=== PATIENT | female | born 1990 | race Caucasian/White ===

== ENCOUNTER 2017-09-09 10:18 | Emergency (ER) | payer OTHER ==
[2017-09-09 10:22] VITALS: BP 120/79; PULSE 62; RESP 18; TEMP 98.2
--- NOTE | 2017-09-09 10:41 | ED ---
General Adult HPI - General Chief complaint: Dental/Oral Stated complaint: Tooth Pain Time Seen by Provider: 09/09/17 10:20 Source: patient, RN notes reviewed Mode of arrival: ambulatory Limitations: no limitations - History of Present Illness Initial comments: This is a 27-year-old female who presents emergency department stating she was at her dentist office yesterday and he pulled 2 of her molars. Patient states the pain is so bad it makes it difficult to work. Patient states she has [place] was and Motrin 800 but they're not touching the pain. Patient also states she' s on clindamycin. Patient states she's looking to get a couple days off of work. Patient states she no she can't take any other pain medicine because it all makes her fall sleep and that is why she is been unable to take the [place]. Patient denies any swelling or drainage. Patient denies any fever chills. - Related Data Home Medications Medication Instructions Recorded Confirmed Ibuprofen [Motrin] 800 mg PO TID PRN 01/31/16 09/09/17 Allergies Allergy/AdvReac Type Severity Reaction Status Date / Time cephalexin monohydrate Allergy Rash/Hives Verified 09/09/17 10:36 [From Keflex] Penicillins Allergy Rash/Hives Verified 09/09/17 10:36 Sulfa (Sulfonamide Allergy Rash/Hives Verified 09/09/17 10:36 Antibiotics) Review of Systems ROS Statement: Those systems with pertinent positive or pertinent negative responses have been documented in the HPI. ROS Other: All systems not noted in ROS Statement are negative. Past Medical History Past Medical History: No Reported History Additional Past Medical History / Comment(s): migraine History of Any Multi-Drug Resistant Organisms: None Reported Past Surgical History: No Surgical Hx Reported Past Psychological History: Depression Smoking Status: Current some day smoker Past Alcohol Use History: Rare Past Drug Use History: None Reported General Exam - General Exam Comments Initial Comments: GENERAL Patient is well-developed and well-nourished. Patient is in mild distress. EYES Patient's pupils are equal and round. Extraocular motion is intact MOUTH Patient's empty sockets delusional any signs of infection and appear to be healing well SKIN Unremarkable NEURO The patient is alert and oriented 3 PYSCH Patient has normal interpersonal interactions. MUSCULOSKELETAL All 4 times and full range of motion. Limitations: no limitations Course Vital Signs 09/09/17 10:19 Temperature 98.2 F Pulse Rate 62 Respiratory 18 Rate Blood Pressure 120/79 O2 Sat by Pulse 100 Oximetry Disposition Clinical Impression: Pain, dental Disposition: HOME SELF-CARE Condition: Good Instructions: Toothache (ED) Is patient prescribed a controlled substance at d/c from ED?: No Referrals: Hadley Zimmerman DO [Primary Care Provider] - 1-2 days Time of Disposition: 10:41
== END 2017-09-09 10:50 | disposition home or self-care (01) ==
LOC: EC 10:18
DX: K08.89 Other specified disorders of teeth and supporting structures (principal); K08.409 Partial loss of teeth, unspecified cause, unspecified class; F17.200 Nicotine dependence, unspecified, uncomplicated; Z88.1 Allergy status to other antibiotic agents; Z88.0 Allergy status to penicillin; Z88.2 Allergy status to sulfonamides
CPT/HCPCS: 99282

== ENCOUNTER 2017-09-17 13:42 | Emergency (ER) | payer OTHER ==
[2017-09-17 13:53] VITALS: RESP 18
[2017-09-17] MEDS ORDERED: KETOROLAC 60 MG/2 ML VIAL IM STA (14:32)
[2017-09-17] MEDS ORDERED: METOCLOPRAMIDE 5 MG/ML 2 ML VIAL IVP STA (14:32)
[2017-09-17] MEDS ORDERED: diphenhydrAMINE 50 MG/ML 1 ML VIAL IM STA (14:32)
--- NOTE | 2017-09-17 14:36 | ED ---
General Adult HPI - General Chief complaint: Headache Stated complaint: migraine Time Seen by Provider: 09/17/17 14:27 Source: patient, RN notes reviewed Mode of arrival: ambulatory Limitations: no limitations - History of Present Illness Initial comments: Patient is a pleasant 27-year-old female presenting to the emergency department with complaints of headache. Onset of headache was yesterday. Gradual onset and symptoms have progressively worsened since that time. Headache is mostly in the right side. Patient states she does have a history of chronic migraines. Headache is similar to chronic migraines. Headache is starting to become severe. Patient does have associated nausea and photophobia. No vomiting. Patient has had previous evaluations for this including previous computed tomography scan. No weakness. No fever. Patient did have dental extraction around a week ago. - Related Data Home Medications Medication Instructions Recorded Confirmed Ibuprofen [Motrin] 800 mg PO TID PRN 01/31/16 09/17/17 Desvenlafaxine Succinate [Pristiq 50 mg PO DAILY 09/09/17 09/17/17 ER] HYDROcodone/APAP 5-325MG [[place] 1 tab PO TID PRN 09/09/17 09/17/17 5-325] Rizatriptan Odt [Maxalt Label Maker] 10 mg PO Q3H PRN MDD 20 MG 09/09/17 09/17/17 Topiramate [Topamax] 50 mg PO BID 09/09/17 09/17/17 Allergies Allergy/AdvReac Type Severity Reaction Status Date / Time cephalexin monohydrate Allergy Rash/Hives Verified 09/17/17 14:09 [From Keflex] Penicillins Allergy Rash/Hives Verified 09/17/17 14:09 Sulfa (Sulfonamide Allergy Rash/Hives Verified 09/17/17 14:09 Antibiotics) Review of Systems ROS Statement: Those systems with pertinent positive or pertinent negative responses have been documented in the HPI. ROS Other: All systems not noted in ROS Statement are negative. Constitutional: Denies: fever Eyes: Denies: eye pain ENT: Denies: ear pain Respiratory: Denies: dyspnea Cardiovascular: Denies: chest pain Endocrine: Denies: fatigue Gastrointestinal: Reports: nausea. Denies: vomiting Genitourinary: Denies: dysuria Musculoskeletal: Denies: back pain Skin: Denies: rash Neurological: Reports: headache. Denies: weakness, confusion Past Medical History Past Medical History: No Reported History Additional Past Medical History / Comment(s): migraines History of Any Multi-Drug Resistant Organisms: None Reported Past Surgical History: No Surgical Hx Reported Past Psychological History: Depression Smoking Status: Current some day smoker Past Alcohol Use History: Rare Past Drug Use History: None Reported General Exam Limitations: no limitations General appearance: alert, in no apparent distress Head exam: Present: atraumatic Eye exam: Present: normal appearance, PERRL, EOMI. Absent: nystagmus ENT exam: Present: other (Evidence of recent dental extraction right upper molar without erythema or swelling or drainage.) Neck exam: Present: normal inspection Respiratory exam: Present: normal lung sounds bilaterally Cardiovascular Exam: Present: regular rate, normal rhythm GI/Abdominal exam: Present: soft. Absent: tenderness Extremities exam: Present: normal inspection Neurological exam: Present: alert, CN II-XII intact. Absent: motor sensory deficit Expanded Neurological exam: Present: protecting the airway Speech: Present: fluid speech Cranial nerves: EOM's Intact: Normal, Facial Sensation: Normal Cerebellar function: Finger to Nose: Normal Sensory exam: Upper Extremity Light Touch: Normal, Lower Extremity Light Touch: Normal Motor strength exam: RUE: 5, LUE: 5, RLE: 5, LLE: 5 Eye Response: (4) open spontaneously Motor Response: (6) obeys commands Verbal Response: (5) oriented Psychiatric exam: Present: normal affect, normal mood Skin exam: Present: normal color. Absent: rash Course Vital Signs 09/17/17 13:53 Temperature 98.1 F Pulse Rate 102 H Respiratory 18 Rate Blood Pressure 125/84 O2 Sat by Pulse 97 Oximetry Disposition Clinical Impression: Headache Disposition: HOME SELF-CARE Condition: Stable Instructions: Acute Headache (ED) Additional Instructions: Please do follow-up with primary care physician in the next couple days for recheck. Return for fevers, increased pain, weakness or confusion, worsening symptoms or other concerns. Is patient prescribed a controlled substance at d/c from ED?: No Referrals: Hadley Zimmerman DO [Primary Care Provider] - 1-2 days Time of Disposition: 14:36
[2017-09-17 15:36] VITALS: BP 115/67; PULSE 54; TEMP 97.8
== END 2017-09-17 15:34 | disposition home or self-care (01) ==
LOC: EC 13:42
DX: G43.909 Migraine, unspecified, not intractable, without status migrainosus (principal); F32.9 Major depressive disorder, single episode, unspecified; F17.200 Nicotine dependence, unspecified, uncomplicated; Z79.899 Other long term (current) drug therapy; Z88.0 Allergy status to penicillin; Z88.1 Allergy status to other antibiotic agents; Z88.2 Allergy status to sulfonamides; Z98.818 Other dental procedure status
CPT/HCPCS: 99283; 96374; 96372 ×2; J1200; J2765; J1885

== ENCOUNTER 2017-10-19 18:08 | Emergency (ER) | payer OTHER ==
--- NOTE | 2017-10-19 19:51 | ED ---
General Adult HPI - General Chief complaint: Recheck/Abnormal Lab/Rx Stated complaint: Poss panic attack Time Seen by Provider: 10/19/17 19:08 Source: patient, RN notes reviewed Mode of arrival: ambulatory Limitations: no limitations - History of Present Illness Initial comments: Patient is a 27-year-old female significant past medical history for depression , presenting to the emergency room today with chief complaint of chest pain and shortness of breath that occurred 3 hours ago while at work. She does not that she's been under a lot of stress at work. 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 Patient states that she got very emotional while at work started to feel short of breath and had some chest discomfort. She states it took about an hour for to calm down she was sent home. 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 She states she started to cry again. Patient states that she began starting to feel better at this time. Some sure if it's work-related stress. Denies any chest pain, shortness breath at this time. Patient states that her heart rate is usually in the 50s. She denies any recent travel, leg pain or swelling. Denies any changes in medications. Patient denies any recent fever, chills, back pain, abdominal pain, nausea or vomiting, numbness or tingling, dysuria or hematuria, constipation or diarrhea, headaches or visual changes, or any other complaints. - Related Data Home Medications Medication Instructions Recorded Confirmed Ibuprofen [Motrin] 800 mg PO TID PRN 01/31/16 09/17/17 Desvenlafaxine Succinate [Pristiq 50 mg PO DAILY 09/09/17 09/17/17 ER] HYDROcodone/APAP 5-325MG [[place] 1 tab PO TID PRN 09/09/17 09/17/17 5-325] Rizatriptan Odt [Maxalt Die Storage Worker] 10 mg PO Q3H PRN MDD 20 MG 09/09/17 09/17/17 Topiramate [Topamax] 50 mg PO BID 09/09/17 09/17/17 Allergies Allergy/AdvReac Type Severity Reaction Status Date / Time cephalexin monohydrate Allergy Rash/Hives Verified 10/19/17 18:23 [From Keflex] Penicillins Allergy Rash/Hives Verified 10/19/17 18:23 Sulfa (Sulfonamide Allergy Rash/Hives Verified 10/19/17 18:23 Antibiotics) Review of Systems ROS Statement: Those systems with pertinent positive or pertinent negative responses have been documented in the HPI. ROS Other: All systems not noted in ROS Statement are negative. Past Medical History Past Medical History: No Reported History Additional Past Medical History / Comment(s): migraines History of Any Multi-Drug Resistant Organisms: None Reported Past Surgical History: No Surgical Hx Reported Past Psychological History: Depression Smoking Status: Current some day smoker Past Alcohol Use History: Rare Past Drug Use History: None Reported General Exam - General Exam Comments Initial Comments: General: The patient is awake and alert, in no distress, and does not appear acutely ill. Eye: Pupils are equal, round and reactive to light, extra-ocular movements are intact. No nystagmus. There is normal conjunctiva bilaterally. No signs of icterus. Ears, nose, mouth and throat: There are moist mucous membranes and no oral lesions. Neck: The neck is supple, there is no tenderness or JVD. Cardiovascular: There is a regular rate and rhythm. No murmur, rub or gallop is appreciated. Respiratory: Lungs are clear to auscultation, respirations are non-labored, breath sounds are equal. No wheezes, stridor, rales, or rhonchi. Gastrointestinal: Soft, non-distended, non-tender abdomen without masses or organomegaly noted. There is no rebound or guarding present. No CVA tenderness. Musculoskeletal: Normal ROM, no tenderness. Strength 5/5. Sensation intact. Pulses equal bilaterally 2+. Neurological: A&O x 3. CN II-XII intact, There are no obvious motor or sensory deficits. Coordination appears grossly intact. Speech is normal. Skin: Skin is warm and dry and no rashes or lesions are noted. Psychiatric: Cooperative, appropriate mood & affect, normal judgment. Limitations: no limitations Course Vital Signs 10/19/17 10/19/17 18:20 19:15 Temperature 98.4 F 98.9 F Pulse Rate 73 63 Respiratory 24 16 Rate Blood Pressure 133/75 120/59 O2 Sat by Pulse 95 100 Oximetry EKG Findings - EKG Comments: EKG Findings:: EKG performed at 1930: Shows sinus bradycardia at 49 bpm. NH interval 154. QRS 82. QT/QTc 438/395. No acute ST changes. Medical Decision Making - Medical Decision Making Case discussed in detail with attending physician Dr. Cage. Patient reexamined at this time shows no signs of distress resting comfortably. Patient resting comfortably. Is asymptomatic at this time. Doesn't that she's been under a lot of stress at work. Her EKGs been reviewed does show sinus bradycardia which she states her heart rate is typically in the 50s this is not unusual for her. She denies any symptoms at this time. She does admit that she was at work when symptoms occurred she was crying and became short of breath and some chest discomfort. Patient doing well at this time was discussed about blood work and further evaluation. She states she does feel comfortable family physician tomorrow. She is advised return if any symptoms increase worsen. Disposition Clinical Impression: Anxiety Disposition: HOME SELF-CARE Condition: Good Instructions: Generalized Anxiety Disorder (ED) Additional Instructions: Family doctor tomorrow as discussed. Return here to the emergency room if any symptoms return or increase or worsen. Is patient prescribed a controlled substance at d/c from ED?: No Referrals: Hadley Zimmerman DO [Primary Care Provider] - 1-2 days Time of Disposition: 19:51
[2017-10-19 20:04] VITALS: BP 116/66; PULSE 53; RESP 20; TEMP 99
== END 2017-10-19 20:04 | disposition home or self-care (01) ==
LOC: EC 18:08
DX: F41.9 Anxiety disorder, unspecified (principal); R07.89 Other chest pain; R06.02 Shortness of breath; R42 Dizziness and giddiness; G43.909 Migraine, unspecified, not intractable, without status migrainosus; F32.9 Major depressive disorder, single episode, unspecified; F17.200 Nicotine dependence, unspecified, uncomplicated; Z79.899 Other long term (current) drug therapy; Z88.0 Allergy status to penicillin; Z88.1 Allergy status to other antibiotic agents; Z88.2 Allergy status to sulfonamides
CPT/HCPCS: 93005; 99284

== ENCOUNTER 2018-01-19 12:11 | Emergency (ER) | payer OTHER ==
[2018-01-19 12:45] VITALS: BP 124/75; PULSE 94; RESP 18; TEMP 98
[2018-01-19] MEDS ORDERED: SODIUM CHLORIDE 0.9% 1,000 ML IV ONE (12:57)
[2018-01-19] MEDS ORDERED: KETOROLAC 60 MG/2 ML VIAL IVP STA (12:58)
[2018-01-19] MEDS ORDERED: diphenhydrAMINE 50 MG/ML 1 ML VIAL IVP STA (12:58)
[2018-01-19] MEDS ORDERED: PROMETHAZINE INJ 25 MG in SODIUM CHLORIDE 0.9% 50 ML IVPB STA (12:59)
--- NOTE | 2018-01-19 13:01 | ED ---
General Adult HPI - General Chief complaint: Headache Stated complaint: headache Time Seen by Provider: 01/19/18 12:40 Source: patient, RN notes reviewed Mode of arrival: ambulatory Limitations: no limitations - History of Present Illness Initial comments: Is a 27-year-old female presents emergency Department complaining of a migraine headache. Patient states she has a history of migraine headaches and normally takes Maxalt at home and it did not work today. Patient states she supposed to be on a daily medication for migraine headaches but she does not take it. Patient states today's headache is no different than any other headache she has had the past on the right side. Patient denies any nausea vomiting. Patient denies any blurred vision or slurred speech. Patient states he is a little bit sensitive to light. Patient denies any recent fever chills or cough. Patient denies any chest pain palpitations difficulty breathing. Patient denies any abdominal pain. Patient states she has an IUD in place. She wants to be checked for . - Related Data Home Medications Medication Instructions Recorded Confirmed Desvenlafaxine Succinate [Pristiq 50 mg PO DAILY 09/09/17 01/19/18 ER] Rizatriptan Odt [Maxalt Continuity Writer] 10 mg PO Q3H PRN MDD 20 MG 09/09/17 01/19/18 Topiramate [Topamax] 25 mg PO BID 09/09/17 01/19/18 busPIRone HCL [Buspar] 7.5 mg PO BID 01/19/18 01/19/18 Allergies Allergy/AdvReac Type Severity Reaction Status Date / Time cephalexin monohydrate Allergy Rash/Hives Verified 01/19/18 12:55 [From Keflex] Penicillins Allergy Rash/Hives Verified 01/19/18 12:55 Sulfa (Sulfonamide Allergy Rash/Hives Verified 01/19/18 12:55 Antibiotics) Review of Systems ROS Statement: Those systems with pertinent positive or pertinent negative responses have been documented in the HPI. ROS Other: All systems not noted in ROS Statement are negative. Past Medical History Past Medical History: No Reported History Additional Past Medical History / Comment(s): migraines History of Any Multi-Drug Resistant Organisms: None Reported Past Surgical History: No Surgical Hx Reported Past Psychological History: Depression Smoking Status: Current some day smoker Past Alcohol Use History: Rare Past Drug Use History: None Reported General Exam - General Exam Comments Initial Comments: GENERAL: Patient is well-developed and well-nourished. Patient is nontoxic and well- hydrated and is in mild distress. ENT: Neck is soft and supple. No significant lymphadenopathy is noted. Oropharynx is clear. Moist mucous membranes. Neck has full range of motion without eliciting any pain. EYES: The sclera were anicteric and conjunctiva were pink and moist. Extraocular movements were intact and pupils were equal round and reactive to light. Eyelids were unremarkable. PULMONARY: Unlabored respirations. Good breath sounds bilaterally. No audible rales rhonchi or wheezing was noted. CARDIOVASCULAR: There is a regular rate and rhythm without any murmurs gallops or rubs. ABDOMEN: Soft and nontender with normal bowel sounds. No palpable organomegaly was noted. There is no palpable pulsatile mass. SKIN: Skin is clear with no lesions or rashes and otherwise unremarkable. NEUROLOGIC: Patient is alert and oriented x3. Cranial nerves II through XII are grossly intact. Motor and sensory are also intact. Normal speech, volume and content. Symmetrical smile. MUSCULOSKELETAL: Normal extremities with adequate strength and full range of motion. LYMPHATICS: No significant lymphadenopathy is noted PSYCHIATRIC: Normal psychiatric evaluation. Limitations: no limitations Course Vital Signs 01/19/18 12:42 Temperature 98.0 F Pulse Rate 94 Respiratory 18 Rate Blood Pressure 124/75 O2 Sat by Pulse 100 Oximetry Medical Decision Making - Medical Decision Making Patient received Benadryl Phenergan and Toradol and was feeling considerably better. Patient was requesting to go home and rest. Patient also received a liter of fluid. - Lab Data Lab Results 01/19/18 Range/Units 13:06 Urine HCG, Qual Not Detected (Not Detectd) Disposition Clinical Impression: Migraine headache Disposition: HOME SELF-CARE Condition: Good Instructions: Migraine Headache (ED) Is patient prescribed a controlled substance at d/c from ED?: No Referrals: Hadley Zimmerman DO [Primary Care Provider] - 1-2 days Time of Disposition: 14:01
== END 2018-01-19 14:06 | disposition home or self-care (01) ==
LOC: EC 12:11
DX: G43.909 Migraine, unspecified, not intractable, without status migrainosus (principal); F32.9 Major depressive disorder, single episode, unspecified; F17.200 Nicotine dependence, unspecified, uncomplicated; Z79.899 Other long term (current) drug therapy; Z88.0 Allergy status to penicillin; Z88.1 Allergy status to other antibiotic agents; Z88.2 Allergy status to sulfonamides; Z97.5 Presence of (intrauterine) contraceptive device
CPT/HCPCS: 81025; 99283; 96365; 96375 ×2; J1200; J2550; J1885

== ENCOUNTER 2018-01-21 17:19 | Emergency (ER) | payer OTHER ==
[2018-01-21] MEDS ORDERED: METOCLOPRAMIDE 5 MG/ML 2 ML VIAL IVP STA (18:05)
[2018-01-21] MEDS ORDERED: diphenhydrAMINE 50 MG/ML 1 ML VIAL IVP STA (18:05)
[2018-01-21] MEDS ORDERED: SODIUM CHLORIDE 0.9% 1,000 ML IV STA (18:05)
[2018-01-21] MEDS ORDERED: KETOROLAC 30 MG/ML 1 ML VIAL IVP STA (18:05)
--- NOTE | 2018-01-21 18:34 | ED ---
Headache HPI - General Chief Complaint: Headache Stated Complaint: Migraine Time Seen by Provider: 01/21/18 17:36 Source: RN notes reviewed, old records reviewed Mode of arrival: ambulatory Limitations: no limitations - History of Present Illness Initial Comments: 27-year-old female presents today of migraine-like headache for the past day. She reports she is to emergency department 2 days ago for similar complaints. That her headache diminished after she was in the ER. She returned today because she had another migraine occur while at work. She did take her at-home medications the reports of progressing. She states this migraine is similar to her previous migraine had episodes. Patient states that she has had no fevers or chills. She denies visual changes. No falls or trauma or head injury. - Related Data Home Medications Medication Instructions Recorded Confirmed Desvenlafaxine Succinate [Pristiq 50 mg PO DAILY 09/09/17 01/21/18 ER] Rizatriptan Odt [Maxalt Pharmaceutical Engineer] 10 mg PO Q3H PRN MDD 20 MG 09/09/17 01/21/18 Topiramate [Topamax] 25 mg PO BID 09/09/17 01/21/18 busPIRone HCL [Buspar] 7.5 mg PO BID 01/19/18 01/21/18 Vitamin B Complex 1 cap PO DAILY 01/21/18 01/21/18 Previous Rx's Medication Instructions Recorded Butalb/Acetaminophen/Caffeine 1 - 2 cap PO Q4HR #12 cap 01/21/18 [Fioricet 50-300-40 mg Capsule] Metoclopramide [Reglan] 10 mg PO ACHS #12 tab 01/21/18 Allergies Allergy/AdvReac Type Severity Reaction Status Date / Time cephalexin monohydrate Allergy Rash/Hives Verified 01/21/18 18:07 [From Keflex] Penicillins Allergy Rash/Hives Verified 01/21/18 18:07 Sulfa (Sulfonamide Allergy Rash/Hives Verified 01/21/18 18:07 Antibiotics) Review of Systems ROS Statement: Those systems with pertinent positive or pertinent negative responses have been documented in the HPI. ROS Other: All systems not noted in ROS Statement are negative. Past Medical History Past Medical History: No Reported History Additional Past Medical History / Comment(s): migraines History of Any Multi-Drug Resistant Organisms: None Reported Past Surgical History: No Surgical Hx Reported Past Psychological History: Depression Smoking Status: Current some day smoker Past Alcohol Use History: Rare Past Drug Use History: None Reported General Exam - General Exam Comments Initial Comments: This is a 27-year-old female. Alert and oriented. Patient appears in no acute distress. Limitations: no limitations General appearance: alert, in no apparent distress Head exam: Present: atraumatic, normocephalic, normal inspection Eye exam: Present: normal appearance, PERRL, EOMI. Absent: scleral icterus, conjunctival injection, periorbital swelling ENT exam: Present: normal exam, mucous membranes moist Neck exam: Present: normal inspection. Absent: tenderness, meningismus, lymphadenopathy Respiratory exam: Present: normal lung sounds bilaterally. Absent: respiratory distress, wheezes, rales, rhonchi, stridor Cardiovascular Exam: Present: regular rate, normal rhythm, normal heart sounds. Absent: systolic murmur, diastolic murmur, rubs, gallop, clicks GI/Abdominal exam: Present: soft, normal bowel sounds. Absent: distended, tenderness, guarding, rebound, rigid Extremities exam: Present: normal inspection, full ROM, normal capillary refill. Absent: tenderness, pedal edema, joint swelling, calf tenderness Back exam: Present: normal inspection Neurological exam: Present: alert, oriented X3, CN II-XII intact Expanded Patient oriented to: Present: person, place, time Speech: Present: fluid speech Cranial nerves: EOM's Intact: Normal Cerebellar function: Finger to Nose: Normal Upper motor neuron: Pronator Drift: Normal Sensory exam: Upper Extremity Light Touch: Normal, Lower Extremity Light Touch: Normal Motor strength exam: RUE: 5, LUE: 5, RLE: 5, LLE: 5 Eye Response: (4) open spontaneously Motor Response: (6) obeys commands Verbal Response: (5) oriented [place] Total: 15 Psychiatric exam: Present: normal affect, normal mood Skin exam: Present: warm, dry, intact, normal color. Absent: rash Course Vital Signs 01/21/18 01/21/18 17:30 19:26 Temperature 98.3 F 97.9 F Pulse Rate 60 61 Respiratory 20 18 Rate Blood Pressure 139/91 104/68 O2 Sat by Pulse 100 100 Oximetry - Reevaluation(s) Reevaluation #1: 10/25/18 19:08 Patient was reevaluated time reports her migraine headache is diminished. She states is now a 43 out of 10. She does feel better at this time. She states she like to be discharged home. Medical Decision Making - Medical Decision Making 27-year-old feel sensory started with 1 day of migraine-like headache. She sees Yolanda few days ago for similar complaints. She has no focal or lateralizing neurologic deficits. She reports this headache is similar to her previous migraines. Patient at this times has no other complaints. Patient's symptoms are resolving after IV fluids, Reglan Toradol and Benadryl. She reports her headache was a 2 out of 10. At this time Patient will be discharged with prescription for Fioricet and Reglan. Discussed medications she strained meats hydrated. Given a referral for neurology with frequent migraines. Disposition Clinical Impression: Migraine headache Disposition: HOME SELF-CARE Condition: Good Instructions: Acute Headache (ED) Additional Instructions: Patient advised to follow-up with primary care provider. Return to the emergency department if any alarming signs or symptoms occur. Prescriptions: Butalb/Acetaminophen/Caffeine [Fioricet 50-300-40 mg Capsule] 1 - 2 cap PO Q4HR #12 cap Metoclopramide [Reglan] 10 mg PO ACHS #12 tab Is patient prescribed a controlled substance at d/c from ED?: No Referrals: Haldey Zimmerman DO [Primary Care Provider] - 1-2 days Tabby Brito MD [STAFF PHYSICIAN] - 1-2 days Time of Disposition: 19:07
[2018-01-21 19:27] VITALS: BP 104/68; PULSE 61; RESP 18; TEMP 97.9
== END 2018-01-21 19:27 | disposition home or self-care (01) ==
LOC: EC 17:19
DX: G43.909 Migraine, unspecified, not intractable, without status migrainosus (principal); F32.9 Major depressive disorder, single episode, unspecified; F17.200 Nicotine dependence, unspecified, uncomplicated; Z79.899 Other long term (current) drug therapy; Z88.1 Allergy status to other antibiotic agents; Z88.0 Allergy status to penicillin; Z88.2 Allergy status to sulfonamides
CPT/HCPCS: 99283; 96374; 96375 ×2; 96361; J1200; J2765; J1885

== ENCOUNTER 2018-04-11 08:15 | Emergency (ER) | payer OTHER ==
--- NOTE | 2018-04-11 08:50 | ED ---
General Adult HPI - General Chief complaint: Vaginal Bleeding Stated complaint: Vaginal bleeding-6 wks Time Seen by Provider: 04/11/18 08:32 Source: patient, RN notes reviewed Mode of arrival: ambulatory Limitations: no limitations - History of Present Illness Initial comments: Patient's a G2, P1, 27-year-old female presenting to the emergency room today with a chief complaint of vaginal spotting. Patient states that she's approximate 6 weeks by last menstrual cycle. Patient admits that this morning woke up and went to the bathroom due to some blood in the platelet. States was a bright color. States that she began wearing at had afterwards. Patient denies any other complaints or symptoms. Patient denies any recent fever , chills, shortness of breath, chest pain, back pain, abdominal pain, dysuria or hematuria, constipation or diarrhea, headaches or visual changes, or any other complaints. - Related Data Home Medications Medication Instructions Recorded Confirmed Desvenlafaxine Succinate [Pristiq 50 mg PO DAILY 09/09/17 04/11/18 ER] busPIRone HCL [Buspar] 7.5 mg PO BID 01/19/18 04/11/18 Acetaminophen [Tylenol] 650 mg PO Q8HR 04/11/18 04/11/18 Amitriptyline HCl [Elavil] 50 mg PO DAILY 04/11/18 04/11/18 SUMAtriptan SUCCINATE [Imitrex] 50 mg PO DIRECTED 04/11/18 04/11/18 hydrOXYzine PAMOATE [Vistaril] 50 mg PO DIRECTED 04/11/18 04/11/18 Allergies Allergy/AdvReac Type Severity Reaction Status Date / Time cephalexin monohydrate Allergy Rash/Hives Verified 04/11/18 08:59 [From Keflex] Penicillins Allergy Rash/Hives Verified 04/11/18 08:59 Sulfa (Sulfonamide Allergy Rash/Hives Verified 04/11/18 08:59 Antibiotics) Review of Systems ROS Statement: Those systems with pertinent positive or pertinent negative responses have been documented in the HPI. ROS Other: All systems not noted in ROS Statement are negative. Past Medical History Past Medical History: No Reported History Additional Past Medical History / Comment(s): migraines History of Any Multi-Drug Resistant Organisms: None Reported Past Surgical History: No Surgical Hx Reported Additional Past Surgical History / Comment(s): wisdom teeth Past Psychological History: Anxiety, Depression Smoking Status: Current some day smoker Past Alcohol Use History: Rare Past Drug Use History: None Reported General Exam - General Exam Comments Initial Comments: General: The patient is awake and alert, in no distress, and does not appear acutely ill. Eye: There is normal conjunctiva bilaterally. No signs of icterus. Ears, nose, mouth and throat: There are moist mucous membranes and no oral lesions. Neck: The neck is supple Cardiovascular: There is a regular rate and rhythm. No murmur, rub or gallop is appreciated. Respiratory: Lungs are clear to auscultation, respirations are non-labored, breath sounds are equal. No wheezes, stridor, rales, or rhonchi. Gastrointestinal: Abdomen soft nontender. Musculoskeletal: Normal ROM, no tenderness. Neurological: A&O x 3. CN II-XII intact, There are no obvious motor or sensory deficits. Coordination appears grossly intact. Speech is normal. Skin: Skin is warm and dry and no rashes or lesions are noted. Psychiatric: Cooperative, appropriate mood & affect, normal judgment. Limitations: no limitations Course Vital Signs 04/11/18 08:21 Temperature 98.1 F Pulse Rate 77 Respiratory 20 Rate Blood Pressure 128/80 O2 Sat by Pulse 100 Oximetry Medical Decision Making - Medical Decision Making Patient's ultrasound reviewed and shows no evidence of IUP at this time. Adnexa was within normal limits. Patient's labs reviewed shows beta hCG is 7.8. Rh+. Patient's urinalysis reviewed and does show evidence for possible infection. Cultures pending. Patient is resting comfortably at this time. Abdomen soft nontender. Vitals are stable. Results were discussed with the patient. She is advised to have repeat beta hCG in 2 days. Advised close follow-up with the CUST[facility]ORATING CONSULTANT. Advised return if symptoms increase or worsen. - Lab Data Result diagrams: 04/11/18 09:00 04/11/18 09:00 Lab Results 04/11/18 04/11/18 04/11/18 Range/Units 09:00 09:00 09:00 WBC 9.5 (3.8-10.6) k/uL RBC 4.60 (3.80-5.40) m/uL Hgb 13.9 (11.4-16.0) gm/dL Hct 40.6 (34.0-46.0) % MCV 88.2 (80.0-100.0) fL MCH 30.1 (25.0-35.0) pg MCHC 34.2 (31.0-37.0) g/dL RDW 15.4 (11.5-15.5) % Plt Count 216 (150-450) k/uL Neutrophils % 75 % Lymphocytes % 18 % Monocytes % 5 % Eosinophils % 0 % Basophils % 0 % Neutrophils # 7.1 (1.3-7.7) k/uL Lymphocytes # 1.7 (1.0-4.8) k/uL Monocytes # 0.5 (0-1.0) k/uL Eosinophils # 0.0 (0-0.7) k/uL Basophils # 0.0 (0-0.2) k/uL Sodium 141 (137-145) mmol/L Potassium 4.7 (3.5-5.1) mmol/L Chloride 110 H (98-107) mmol/L Carbon Dioxide 26 (22-30) mmol/L Anion Gap 5 mmol/L BUN 13 (7-17) mg/dL Creatinine 0.60 (0.52-1.04) mg/dL Est GFR (CKD-EPI)AfAm >90 (>60 ml/min/1.73 sqM) Est GFR (CKD-EPI)NonAf >90 (>60 ml/min/1.73 sqM) Glucose 99 (74-99) mg/dL Calcium 9.0 (8.4-10.2) mg/dL Total Bilirubin 0.4 (0.2-1.3) mg/dL AST 21 (14-36) U/L ALT 25 (9-52) U/L Alkaline Phosphatase 56 (38-126) U/L Total Protein 6.6 (6.3-8.2) g/dL Albumin 3.9 (3.5-5.0) g/dL HCG, Quant 7.8 mIU/mL Urine Color Urine Appearance (Clear) Urine pH (5.0-8.0) Ur Specific [place] (1.001-1.035) Urine Protein (Negative) Urine Glucose (UA) (Negative) Urine Ketones (Negative) Urine Blood (Negative) Urine Nitrite (Negative) Urine Bilirubin (Negative) Urine Urobilinogen (<2.0) mg/dL Ur Leukocyte Esterase (Negative) Urine RBC (0-5) /hpf Urine WBC (0-5) /hpf Ur Squamous Epith Cells (0-4) /hpf Urine Bacteria (None) /hpf Blood Type B Positive Blood Type Recheck No 04/11/18 Range/Units 09:00 WBC (3.8-10.6) k/uL RBC (3.80-5.40) m/uL Hgb (11.4-16.0) gm/dL Hct (34.0-46.0) % MCV (80.0-100.0) fL MCH (25.0-35.0) pg MCHC (31.0-37.0) g/dL RDW (11.5-15.5) % Plt Count (150-450) k/uL Neutrophils % % Lymphocytes % % Monocytes % % Eosinophils % % Basophils % % Neutrophils # (1.3-7.7) k/uL Lymphocytes # (1.0-4.8) k/uL Monocytes # (0-1.0) k/uL Eosinophils # (0-0.7) k/uL Basophils # (0-0.2) k/uL Sodium (137-145) mmol/L Potassium (3.5-5.1) mmol/L Chloride (98-107) mmol/L Carbon Dioxide (22-30) mmol/L Anion Gap mmol/L BUN (7-17) mg/dL Creatinine (0.52-1.04) mg/dL Est GFR (CKD-EPI)AfAm (>60 ml/min/1.73 sqM) Est GFR (CKD-EPI)NonAf (>60 ml/min/1.73 sqM) Glucose (74-99) mg/dL Calcium (8.4-10.2) mg/dL Total Bilirubin (0.2-1.3) mg/dL AST (14-36) U/L ALT (9-52) U/L Alkaline Phosphatase (38-126) U/L Total Protein (6.3-8.2) g/dL Albumin (3.5-5.0) g/dL HCG, Quant mIU/mL Urine Color Red Urine Appearance Cloudy H (Clear) Urine pH 5.5 (5.0-8.0) Ur Specific [place] 1.021 (1.001-1.035) Urine Protein 1+ H (Negative) Urine Glucose (UA) Negative (Negative) Urine Ketones Negative (Negative) Urine Blood Large H (Negative) Urine Nitrite Negative (Negative) Urine Bilirubin Negative (Negative) Urine Urobilinogen <2.0 (<2.0) mg/dL Ur Leukocyte Esterase Small H (Negative) Urine RBC >182 H (0-5) /hpf Urine WBC 30 H (0-5) /hpf Ur Squamous Epith Cells 2 (0-4) /hpf Urine Bacteria Occasional H (None) /hpf Blood Type Blood Type Recheck Disposition Clinical Impression: Threatened , UTI (urinary tract infection) Disposition: HOME SELF-CARE Condition: Good Instructions: Threatened Miscarriage (ED) Additional Instructions: Please have repeat blood test in 2 days. Please follow-up the [facility]ATING CONSULTANT over the next 2 days. Please return to emergency room if the symptoms increase or worsen or for any other concerns. Is patient prescribed a controlled substance at d/c from ED?: No Referrals: Hadley Zimmerman DO [Primary Care Provider] - 1-2 days Time of Disposition: 10:09
[2018-04-11 09:33] LABS: Basophils % (A) 0 %; Eosinophils % (A) 0 %; HCT 40.6 % (34.0-46.0); HGB 13.9 gm/dL (11.4-16.0); Lymphocytes # (A) 1.7 k/uL (1.0-4.8); Lymphocytes % (A) 18 %; MCH 30.1 pg (25.0-35.0); MCHC 34.2 g/dL (31.0-37.0); MCV 88.2 fL (80.0-100.0); Monocytes # (A) 0.5 k/uL (0-1.0); Monocytes % (A) 5 %; Neutrophils # (A) 7.1 k/uL (1.3-7.7); Neutrophils % (A) 75 %; Platelet Count 216 k/uL (150-450); RDW 15.4 % (11.5-15.5); WBC 9.5 k/uL (3.8-10.6)
[2018-04-11 09:42] LABS: Appearance,Urine Cloudy (Clear); Bacteria,Urine Occasional /hpf; Bilirubin,Urine Negative (Negative); Blood,Urine Large (Negative); Color,Urine Red; Glucose,Urine (UA) Negative (Negative); Ketones,Urine Negative (Negative); Leukocyte Esterase,Urine Small (Negative); Nitrite,Urine Negative (Negative); PH, Urine 5.5 (5.0-8.0); Protein,Urine 1+ (Negative); RBC,Urine >182 /hpf (0-5); Specific Gravity,Urine 1.021 (1.001-1.035); Squamous Epithelial Cell,Urine 2 /hpf (0-4); Urobilinogen,Urine <2.0 mg/dL (<2.0); WBC,Urine 30 /hpf (0-5)
--- NOTE | 2018-04-11 09:42 | US ---
EXAMINATION TYPE: Transabdominal DATE OF EXAM: 06/30/17 COMPARISON: NONE CLINICAL HISTORY: Pain. Vaginal bleeding. IUD removed in January EXAM PERFORMED: Transvaginal (TV) and Transabdominal (TA) EXAM MEASUREMENTS: GESTATIONAL AGE / DATING Physician Established: Not yet established Dates by LMP: LMP unknown Dates by First Scan: No previous this is first scan Dates by Current Scan for: No IUP seen at this time MATERNAL ANATOMY Uterus: 6.4 x 3.7 x 4.8cm Right Ovary: 2.7 x 1.6 x 2.3cm Left Ovary: 3.1 x 1.3 x 1.4cm Post CDS / Adnexa: appears wnl Presence of free fluid: no GESTATION / SURVEY IUP: No IUP seen at this time Date of LMP: unknown Beta HcG (if available): Not available at this time No evidence of IUP at this time IMPRESSION: WE HAVE NOT IDENTIFIED INTRAUTERINE OR EXTRAUTERINE GESTATION AT THIS TIME. SHORT-TERM FOLLOW-UP +/- SERIAL BETA HCGS WOULD BE SUGGESTED.
[2018-04-11 09:43] LABS: ALT 25 U/L (9-52); AST 21 U/L (14-36); Albumin 3.9 g/dL (3.5-5.0); Alkaline Phosphatase 56 U/L (38-126); Anion Gap 5 mmol/L; Blood Urea Nitrogen 13 mg/dL (7-17); Carbon Dioxide 26 mmol/L (22-30); Chloride 110 mmol/L (98-107); Glucose 99 mg/dL (74-99); Potassium 4.7 mmol/L (3.5-5.1); Sodium 141 mmol/L (137-145); Total Bilirubin 0.4 mg/dL (0.2-1.3); Total Protein 6.6 g/dL (6.3-8.2)
[2018-04-11 09:59] LABS: HCG,Quantitative Serum 7.8 mIU/mL
[2018-04-11 10:28] VITALS: BP 116/78; PULSE 69; RESP 16; TEMP 97.9
== END 2018-04-11 10:15 | disposition home or self-care (01) ==
LOC: EC 08:15
DX: O20.0 Threatened abortion (principal); O23.41 Unspecified infection of urinary tract in pregnancy, first trimester; O99.351 Diseases of the nervous system complicating pregnancy, first trimester; G43.909 Migraine, unspecified, not intractable, without status migrainosus; O99.341 Other mental disorders complicating pregnancy, first trimester; F41.9 Anxiety disorder, unspecified; F32.9 Major depressive disorder, single episode, unspecified; O99.331 Smoking (tobacco) complicating pregnancy, first trimester; F17.200 Nicotine dependence, unspecified, uncomplicated; Z79.899 Other long term (current) drug therapy; Z88.1 Allergy status to other antibiotic agents; Z88.0 Allergy status to penicillin; Z88.2 Allergy status to sulfonamides; Z3A.01 Less than 8 weeks gestation of pregnancy
CPT/HCPCS: 36415; 76801; 76817; 80053; 81001; 84702; 85025; 86900; 86901; 87086; 99284

== ENCOUNTER → 2018-04-13 | Outpatient (CLI) | payer OTHER | END | disposition home or self-care (01) | LOC: LABWHC1 07:58 | PROVIDERS: ATTEND Physician Assistant | DX: N93.9 Abnormal uterine and vaginal bleeding, unspecified (principal) | CPT/HCPCS: 36415; 84702 ==

== ENCOUNTER → 2018-05-17 | Outpatient (CLI) | payer OTHER | END | disposition home or self-care (01) | LOC: LABWHC1 16:42 | PROVIDERS: ATTEND Physician Assistant | DX: Z33.1 Pregnant state, incidental (principal) | CPT/HCPCS: 36415; 84702 ==

== ENCOUNTER 2018-07-14 08:06 | Emergency (ER) | payer OTHER ==
[2018-07-14 08:10] VITALS: RESP 18
--- NOTE | 2018-07-14 08:44 | ED ---
General Adult HPI - General Chief complaint: Vaginal Bleeding Stated complaint: Vaginal Bleeding-13 wks Time Seen by Provider: 07/14/18 08:13 Source: patient, RN notes reviewed, old records reviewed Mode of arrival: ambulatory Limitations: no limitations - History of Present Illness Initial comments: Patient is a 27-year-old female, , occur approximately 13 weeks . She states she presents emergency department today for concerns vaginal bleeding. She reports that she was told she had a subchorionic bleed before. Patient states that she's had heavier bleeding today in the past. Patient she has diffuse lower abdominal cramping. She reports that her MOLD SWABBER is Dr. Quiroga. - Related Data Home Medications Medication Instructions Recorded Confirmed Desvenlafaxine Succinate [Pristiq 50 mg PO DAILY 09/09/17 07/14/18 ER] busPIRone HCL [Buspar] 7.5 mg PO BID 01/19/18 07/14/18 Amitriptyline HCl [Elavil] 50 mg PO DAILY 04/11/18 07/14/18 SUMAtriptan SUCCINATE [Imitrex] 50 mg PO BID PRN 04/11/18 07/14/18 hydrOXYzine PAMOATE [Vistaril] 50 mg PO TID PRN 04/11/18 07/14/18 Allergies Allergy/AdvReac Type Severity Reaction Status Date / Time cephalexin monohydrate Allergy Rash/Hives Verified 07/14/18 08:37 [From Keflex] Penicillins Allergy Rash/Hives Verified 07/14/18 08:37 Sulfa (Sulfonamide Allergy Rash/Hives Verified 07/14/18 08:37 Antibiotics) Review of Systems ROS Statement: Those systems with pertinent positive or pertinent negative responses have been documented in the HPI. ROS Other: All systems not noted in ROS Statement are negative. Past Medical History Past Medical History: No Reported History Additional Past Medical History / Comment(s): migraines History of Any Multi-Drug Resistant Organisms: None Reported Past Surgical History: No Surgical Hx Reported Additional Past Surgical History / Comment(s): wisdom teeth Past Psychological History: Anxiety, Depression Smoking Status: Former smoker Past Alcohol Use History: Rare Past Drug Use History: None Reported General Exam - General Exam Comments Initial Comments: This is a 27-year-old female. Alert and oriented 3. Patient is a no significant distress. Limitations: no limitations General appearance: alert, in no apparent distress Head exam: Present: atraumatic, normocephalic, normal inspection Eye exam: Present: normal appearance, PERRL, EOMI. Absent: scleral icterus, conjunctival injection, periorbital swelling ENT exam: Present: normal exam, mucous membranes moist Neck exam: Present: normal inspection. Absent: tenderness, meningismus, lymphadenopathy Respiratory exam: Present: normal lung sounds bilaterally. Absent: respiratory distress, wheezes, rales, rhonchi, stridor Cardiovascular Exam: Present: regular rate, normal rhythm, normal heart sounds. Absent: systolic murmur, diastolic murmur, rubs, gallop, clicks GI/Abdominal exam: Present: soft, normal bowel sounds. Absent: distended, tenderness, guarding, rebound, rigid External exam: Present: normal external exam Speculum exam: Present: vaginal bleeding (Dark brown vaginal bleeding noted.). Absent: normal speculum exam, vaginal discharge By manual exam: Present: normal by manual exam. Absent: cervical motion tenderness, adnexal tenderness Extremities exam: Present: normal inspection, full ROM, normal capillary refill. Absent: tenderness, pedal edema, joint swelling, calf tenderness Back exam: Present: normal inspection Neurological exam: Present: alert, oriented X3, CN II-XII intact Psychiatric exam: Present: normal affect, normal mood Course Vital Signs 07/14/18 08:07 Temperature 98.0 F Pulse Rate 82 Respiratory 18 Rate Blood Pressure 114/74 O2 Sat by Pulse 99 Oximetry Medical Decision Making - Medical Decision Making Patient's a 27-year-old female present today complains of vaginal bleeding. 13 weeks . She is a female. Patient this time was given IV fluids labwork obtained. Patient's labwork was reviewed normal. Ultrasound shows evidence of IUP measuring 1 46 bpm heart rate. His evidence of subchorionic bleed likely source patient's bleeding. Pelvic exam shows no significant abnormalities but she does have some bleeding noted. She is Rh+. No need for RhoGAM. Discussed Patient should follow-up with her MOLD SWABBER. All questions a nswered return parameters were discussed. - Lab Data Result diagrams: 07/14/18 09:02 07/14/18 09:02 Lab Results 07/14/18 07/14/18 07/14/18 Range/Units 09:02 09:02 09:02 WBC 11.2 H (3.8-10.6) k/uL RBC 4.63 (3.80-5.40) m/uL Hgb 13.1 (11.4-16.0) gm/dL Hct 39.3 (34.0-46.0) % MCV 85.0 (80.0-100.0) fL MCH 28.3 (25.0-35.0) pg MCHC 33.2 (31.0-37.0) g/dL RDW 12.5 (11.5-15.5) % Plt Count 196 (150-450) k/uL Neutrophils % 75 % Lymphocytes % 18 % Monocytes % 6 % Eosinophils % 0 % Basophils % 0 % Neutrophils # 8.4 H (1.3-7.7) k/uL Lymphocytes # 2.0 (1.0-4.8) k/uL Monocytes # 0.6 (0-1.0) k/uL Eosinophils # 0.0 (0-0.7) k/uL Basophils # 0.0 (0-0.2) k/uL PT (9.0-12.0) sec INR (<1.2) APTT (22.0-30.0) sec Sodium 138 (137-145) mmol/L Potassium 4.0 (3.5-5.1) mmol/L Chloride 108 H (98-107) mmol/L Carbon Dioxide 24 (22-30) mmol/L Anion Gap 6 mmol/L BUN 7 (7-17) mg/dL Creatinine 0.48 L (0.52-1.04) mg/dL Est GFR (CKD-EPI)AfAm >90 (>60 ml/min/1.73 sqM) Est GFR (CKD-EPI)NonAf >90 (>60 ml/min/1.73 sqM) Glucose 89 (74-99) mg/dL Calcium 9.1 (8.4-10.2) mg/dL Total Bilirubin 0.3 (0.2-1.3) mg/dL AST 22 (14-36) U/L ALT 30 (9-52) U/L Alkaline Phosphatase 65 (38-126) U/L Total Protein 6.4 (6.3-8.2) g/dL Albumin 3.8 (3.5-5.0) g/dL Blood Type B Positive Blood Type Recheck [facility] ONLY 07/14/18 Range/Units 09:02 WBC (3.8-10.6) k/uL RBC (3.80-5.40) m/uL Hgb (11.4-16.0) gm/dL Hct (34.0-46.0) % MCV (80.0-100.0) fL MCH (25.0-35.0) pg MCHC (31.0-37.0) g/dL RDW (11.5-15.5) % Plt Count (150-450) k/uL Neutrophils % % Lymphocytes % % Monocytes % % Eosinophils % % Basophils % % Neutrophils # (1.3-7.7) k/uL Lymphocytes # (1.0-4.8) k/uL Monocytes # (0-1.0) k/uL Eosinophils # (0-0.7) k/uL Basophils # (0-0.2) k/uL PT 9.7 (9.0-12.0) sec INR 0.9 (<1.2) APTT 23.0 (22.0-30.0) sec Sodium (137-145) mmol/L Potassium (3.5-5.1) mmol/L Chloride (98-107) mmol/L Carbon Dioxide (22-30) mmol/L Anion Gap mmol/L BUN (7-17) mg/dL Creatinine (0.52-1.04) mg/dL Est GFR (CKD-EPI)AfAm (>60 ml/min/1.73 sqM) Est GFR (CKD-EPI)NonAf (>60 ml/min/1.73 sqM) Glucose (74-99) mg/dL Calcium (8.4-10.2) mg/dL Total Bilirubin (0.2-1.3) mg/dL AST (14-36) U/L ALT (9-52) U/L Alkaline Phosphatase (38-126) U/L Total Protein (6.3-8.2) g/dL Albumin (3.5-5.0) g/dL Blood Type Blood Type Recheck - Radiology Data Radiology results: report reviewed Single intrauterine gestation 13 weeks and 1 day cardiac measured 1 46 bpm. Evidence of subchorionic hemorrhage measuring 1.4 x 2.9 x 3.4 cm. Disposition Clinical Impression: Subchorionic bleed, 13 weeks gestation of Disposition: HOME SELF-CARE Condition: Good Instructions (If sedation given, give patient instructions): Subchorionic Hemorrhage (ED) Additional Instructions: Follow-up with primary care doctor. Return to emergency department if any alarming signs or symptoms occur. Is patient prescribed a controlled substance at d/c from ED?: No Referrals: Hadley Zimmerman DO [Primary Care Provider] - 1-2 days Time of Disposition: 10:25
[2018-07-14 09:21] LABS: Basophils % (A) 0 %; Eosinophils % (A) 0 %; HCT 39.3 % (34.0-46.0); HGB 13.1 gm/dL (11.4-16.0); Lymphocytes % (A) 18 %; MCH 28.3 pg (25.0-35.0); MCHC 33.2 g/dL (31.0-37.0); Mean Platelet Volume 8.6; Monocytes # (A) 0.6 k/uL (0-1.0); Monocytes % (A) 6 %; Neutrophils # (A) 8.4 k/uL (1.3-7.7); Neutrophils % (A) 75 %; Platelet Count 196 k/uL (150-450); RBC 4.63 m/uL (3.80-5.40); RDW 12.5 % (11.5-15.5); WBC 11.2 k/uL (3.8-10.6)
[2018-07-14 09:28] LABS: INR 0.9 (<1.2); Prothrombin Time 9.7 sec (9.0-12.0)
[2018-07-14 09:29] LABS: ALT 30 U/L (9-52); AST 22 U/L (14-36); Albumin 3.8 g/dL (3.5-5.0); Alkaline Phosphatase 65 U/L (38-126); Anion Gap 6 mmol/L; Blood Urea Nitrogen 7 mg/dL (7-17); Calcium 9.1 mg/dL (8.4-10.2); Carbon Dioxide 24 mmol/L (22-30); Chloride 108 mmol/L (98-107); Glucose 89 mg/dL (74-99); Sodium 138 mmol/L (137-145); Total Bilirubin 0.3 mg/dL (0.2-1.3); Total Protein 6.4 g/dL (6.3-8.2)
--- NOTE | 2018-07-14 10:05 | US ---
EXAMINATION TYPE: Transabdominal DATE OF EXAM: 07/14/2018 9:41 AM COMPARISON: NONE CLINICAL HISTORY: pain. Patient c/o vaginal bleeding today. EXAM PERFORMED: Transabdominal (TA) EXAM MEASUREMENTS: GESTATIONAL AGE / DATING Physician Established: (13 weeks/1 day) EDC: 01/18/2019 Dates by LMP: LMP unknown Dates by First Scan: No previous scan here Dates by Current Scan for: (13 weeks/1 day) EDC: 01/18/2019 MATERNAL ANATOMY Uterus: 12.5 x 9.2 x 9.3cm Right Ovary: not seen Left Ovary: not seen Post CDS / Adnexa: wnl Presence of free fluid: no Presence of corpus luteal cyst: not seen Presence of subchorionic bleed: superior uterus at subchorionic area couple of hypoechoic areas are s een = 1.4 x 2.9 x 3.4cm GESTATION / SURVEY CRL: 7.0cm (13 weeks/1 day) Heart Rate: 146 bpm Rhythm: Normal IUP: Viable IUP Nuchal Translucency 10-14wks (normal less than 3mm): not identified as head located inferior ge stational sac Date of LMP: unknown Single IUP, 13 weeks/1 day, EDC: 01/18/2019, HR 146bpm; presence of subchorionic bleed: superior uter us at subchorionic area couple of hypoechoic areas are seen = 1.4 x 2.9 x 3.4cm. IMPRESSION: 1. Single intrauterine gestation estimated at 13 weeks 1 day gestation based on crown-rump length. Ca rdiac activity measures 146 bpm. 2. Subchorionic hemorrhage
[2018-07-14 10:48] LABS: Amorphous Sediment,Urine Moderate /hpf; Appearance,Urine Cloudy (Clear); Bacteria,Urine Rare /hpf; Bilirubin,Urine Negative (Negative); Blood,Urine Small (Negative); Color,Urine Yellow; Glucose,Urine (UA) Negative (Negative); Ketones,Urine Negative (Negative); Leukocyte Esterase,Urine Negative (Negative); Mucus,Urine Rare /hpf; Nitrite,Urine Negative (Negative); PH, Urine 6.5 (5.0-8.0); Protein,Urine Negative (Negative); Specific Gravity,Urine 1.017 (1.001-1.035); Squamous Epithelial Cell,Urine 2 /hpf (0-4); Urobilinogen,Urine <2.0 mg/dL (<2.0); WBC,Urine 4 /hpf (0-5)
[2018-07-14 11:16] VITALS: BP 99/56; PULSE 74; TEMP 98.2
[2018-07-15 13:11] LABS: N. gonorrhoeae,PCR Negative (Neg,Equiv); Neisseria Source Vagina
[2018-07-15 14:07] LABS: C. trachomatis,PCR Negative (Neg,Equiv); Chlamydia trachomatis Source Vagina
== END 2018-07-14 11:16 | disposition home or self-care (01) ==
LOC: EC 08:06
DX: O20.8 Other hemorrhage in early pregnancy (principal); Z67.90 Unspecified blood type, Rh positive; O99.341 Other mental disorders complicating pregnancy, first trimester; F32.9 Major depressive disorder, single episode, unspecified; F41.9 Anxiety disorder, unspecified; Z87.891 Personal history of nicotine dependence; Z88.0 Allergy status to penicillin; Z88.1 Allergy status to other antibiotic agents; Z88.2 Allergy status to sulfonamides; Z79.899 Other long term (current) drug therapy; Z3A.13 13 weeks gestation of pregnancy
CPT/HCPCS: 36415; 76801; 80053; 81001; 85025; 85610; 85730; 86900; 86901; 87070; 87086; 87205; 87491; 87591; 87808; 99284

== ENCOUNTER 2018-07-19 02:15 | Emergency (ER) | payer OTHER ==
[2018-07-19] MEDS ORDERED: SODIUM CHLORIDE 0.9% 1,000 ML IV STA (02:33)
[2018-07-19] MEDS ORDERED: METOCLOPRAMIDE 5 MG/ML 2 ML VIAL IVP STA (02:33)
[2018-07-19] MEDS ORDERED: diphenhydrAMINE 50 MG/ML 1 ML VIAL IVP STA (02:33)
[2018-07-19] MEDS ORDERED: DEXTROSE 5% IN WATER 1,000 ML IV STA (02:34)
[2018-07-19 02:51] LABS: Basophils % (A) 0 %; Eosinophils % (A) 0 %; HGB 12.9 gm/dL (11.4-16.0); Lymphocytes # (A) 2.5 k/uL (1.0-4.8); Lymphocytes % (A) 19 %; MCH 28.7 pg (25.0-35.0); MCHC 33.9 g/dL (31.0-37.0); MCV 84.7 fL (80.0-100.0); Mean Platelet Volume 8.8; Monocytes # (A) 0.8 k/uL (0-1.0); Monocytes % (A) 7 %; Neutrophils # (A) 9.1 k/uL (1.3-7.7); Neutrophils % (A) 72 %; Platelet Count 208 k/uL (150-450); RBC 4.49 m/uL (3.80-5.40); RDW 12.5 % (11.5-15.5); WBC 12.8 k/uL (3.8-10.6)
[2018-07-19 02:58] LABS: Appearance,Urine Cloudy (Clear); Bacteria,Urine Rare /hpf; Bilirubin,Urine Negative (Negative); Blood,Urine Negative (Negative); Color,Urine Yellow; Glucose,Urine (UA) Negative (Negative); Ketones,Urine Negative (Negative); Leukocyte Esterase,Urine Negative (Negative); Mucus,Urine Rare /hpf; Nitrite,Urine Negative (Negative); Protein,Urine Negative (Negative); RBC,Urine <1 /hpf (0-5); Specific Gravity,Urine 1.011 (1.001-1.035); Squamous Epithelial Cell,Urine 4 /hpf (0-4); Urobilinogen,Urine <2.0 mg/dL (<2.0); WBC,Urine 5 /hpf (0-5)
[2018-07-19 03:09] LABS: ALT 21 U/L (9-52); AST 20 U/L (14-36); Alkaline Phosphatase 74 U/L (38-126); Amylase 79 U/L (30-110); Anion Gap 8 mmol/L; Blood Urea Nitrogen 6 mg/dL (7-17); Carbon Dioxide 23 mmol/L (22-30); Chloride 106 mmol/L (98-107); Glucose 97 mg/dL (74-99); Lipase 192 U/L (23-300); Potassium 3.9 mmol/L (3.5-5.1); Sodium 137 mmol/L (137-145); Total Bilirubin 0.4 mg/dL (0.2-1.3); Total Protein 6.9 g/dL (6.3-8.2)
--- NOTE | 2018-07-19 03:38 | ED ---
Nausea/Vomiting/Diarrhea HPI - General Chief complaint: Nausea/Vomiting/Diarrhea Stated complaint: 13 wks preg,vomiting Time Seen by Provider: 07/19/18 02:23 Source: patient Mode of arrival: ambulatory Limitations: no limitations - History of Present Illness Initial comments: 27-year-old female patient who is 13 [facility]. She is . Patient states she has had significant hyperemesis during this . States that her doctor instructed her to take Boost supplements. States that she has been unable to keep down any food or fluids for the last 24 hours. Patient denies any abdominal pain. Denies any vaginal bleeding or discharge. Denies any low back pain. Patient denies any diarrhea with this. Denies any hematemesis. She denies any fever or chills. Patient states that her doctor did give her prescription for nausea medication however she has been vomiting since and unable to keep down medication. - Related Data Home Medications Medication Instructions Recorded Confirmed Desvenlafaxine Succinate [Pristiq 50 mg PO DAILY 09/09/17 07/14/18 ER] busPIRone HCL [Buspar] 7.5 mg PO BID 01/19/18 07/14/18 Amitriptyline HCl [Elavil] 50 mg PO DAILY 04/11/18 07/14/18 SUMAtriptan SUCCINATE [Imitrex] 50 mg PO BID PRN 04/11/18 07/14/18 hydrOXYzine PAMOATE [Vistaril] 50 mg PO TID PRN 04/11/18 07/14/18 Allergies Allergy/AdvReac Type Severity Reaction Status Date / Time cephalexin monohydrate Allergy Rash/Hives Verified 07/19/18 02:21 [From Keflex] Penicillins Allergy Rash/Hives Verified 07/19/18 02:21 Sulfa (Sulfonamide Allergy Rash/Hives Verified 07/19/18 02:21 Antibiotics) Review of Systems ROS Statement: Those systems with pertinent positive or pertinent negative responses have been documented in the HPI. ROS Other: All systems not noted in ROS Statement are negative. Past Medical History Past Medical History: No Reported History Additional Past Medical History / Comment(s): migraines, History of Any Multi-Drug Resistant Organisms: None Reported Past Surgical History: No Surgical Hx Reported Additional Past Surgical History / Comment(s): wisdom teeth, Past Psychological History: Anxiety, Depression Smoking Status: Former smoker Past Alcohol Use History: Rare Past Drug Use History: None Reported General Exam Limitations: no limitations General appearance: alert, in no apparent distress, other (Physical well- developed, well-nourished adult female patient in no acute distress. Vital signs upon presentation are temperature 98.5F, pulse 80, respirations 18, blood pressure 117/71, pulse ox 100% on room air.) Eye exam: Present: normal appearance, PERRL, EOMI. Absent: scleral icterus, conjunctival injection, periorbital swelling ENT exam: Present: normal exam, normal oropharynx, mucous membranes moist Respiratory exam: Present: normal lung sounds bilaterally. Absent: respiratory distress, wheezes, rales, rhonchi, stridor Cardiovascular Exam: Present: regular rate, normal rhythm, normal heart sounds. Absent: systolic murmur, diastolic murmur, rubs, gallop, clicks GI/Abdominal exam: Present: soft, normal bowel sounds. Absent: distended, tenderness, guarding, rebound, rigid Neurological exam: Present: alert, oriented X3, CN II-XII intact Psychiatric exam: Present: normal affect, normal mood Skin exam: Present: warm, dry, intact, normal color. Absent: rash Course Vital Signs 07/19/18 02:19 Temperature 98.5 F Pulse Rate 80 Respiratory 18 Rate Blood Pressure 117/71 O2 Sat by Pulse 100 Oximetry Medical Decision Making - Medical Decision Making 27-year-old female patient presents to the emergency department today for evaluation of vomiting for the last 24 hours. Patient is 13 weeks does have hyperemesis. Physical examination is unremarkable. Abdomen is soft and nontender. She reported no abdominal pain, vaginal bleeding, or discharge. Patient was given IV fluids and nausea medication here in the emergency departme nt. Upon reevaluation states that her nausea is improved. She does have control being discharged home at this time. She is instructed to take her medication on a schedule and to start with a clear liquid diet. She is instructed to follow-up with [employer] for recheck as soon as possible. Return pa rameters were discussed in detail. She verbalizes understanding and agrees with this plan. - Lab Data Result diagrams: 07/19/18 02:35 07/19/18 02:35 Lab Results 07/19/18 07/19/18 07/19/18 Range/Units 02:22 02:35 02:35 WBC 12.8 H (3.8-10.6) k/uL RBC 4.49 (3.80-5.40) m/uL Hgb 12.9 (11.4-16.0) gm/dL Hct 38.0 (34.0-46.0) % MCV 84.7 (80.0-100.0) fL MCH 28.7 (25.0-35.0) pg MCHC 33.9 (31.0-37.0) g/dL RDW 12.5 (11.5-15.5) % Plt Count 208 (150-450) k/uL Neutrophils % 72 % Lymphocytes % 19 % Monocytes % 7 % Eosinophils % 0 % Basophils % 0 % Neutrophils # 9.1 H (1.3-7.7) k/uL Lymphocytes # 2.5 (1.0-4.8) k/uL Monocytes # 0.8 (0-1.0) k/uL Eosinophils # 0.0 (0-0.7) k/uL Basophils # 0.0 (0-0.2) k/uL Sodium 137 (137-145) mmol/L Potassium 3.9 (3.5-5.1) mmol/L Chloride 106 (98-107) mmol/L Carbon Dioxide 23 (22-30) mmol/L Anion Gap 8 mmol/L BUN 6 L (7-17) mg/dL Creatinine 0.48 L (0.52-1.04) mg/dL Est GFR (CKD-EPI)AfAm >90 (>60 ml/min/1.73 sqM) Est GFR (CKD-EPI)NonAf >90 (>60 ml/min/1.73 sqM) Glucose 97 (74-99) mg/dL Calcium 10.0 (8.4-10.2) mg/dL Total Bilirubin 0.4 (0.2-1.3) mg/dL AST 20 (14-36) U/L ALT 21 (9-52) U/L Alkaline Phosphatase 74 (38-126) U/L Total Protein 6.9 (6.3-8.2) g/dL Albumin 4.0 (3.5-5.0) g/dL Amylase 79 (30-110) U/L Lipase 192 (23-300) U/L Urine Color Yellow Urine Appearance Cloudy H (Clear) Urine pH 6.0 (5.0-8.0) Ur Specific [employer] 1.011 (1.001-1.035) Urine Protein Negative (Negative) Urine Glucose (UA) Negative (Negative) Urine Ketones Negative (Negative) Urine Blood Negative (Negative) Urine Nitrite Negative (Negative) Urine Bilirubin Negative (Negative) Urine Urobilinogen <2.0 (<2.0) mg/dL Ur Leukocyte Esterase Negative (Negative) Urine RBC <1 (0-5) /hpf Urine WBC 5 (0-5) /hpf Ur Squamous Epith Cells 4 (0-4) /hpf Urine Bacteria Rare H (None) /hpf Urine Mucus Rare H (None) /hpf Disposition Clinical Impression: Hyperemesis gravidarum Disposition: HOME SELF-CARE Condition: Good Instructions (If sedation given, give patient instructions): Hyperemesis Gravidarum (ED) Additional Instructions: Start with clear liquid diet and advance as tolerated. Eat small frequent meals. Take medication given to by your [employer] TENDER. Follow-up with your [employer] TENDER for recheck as soon as possible. Return to the emergency department immediately for any new, worsening, or concerning symptoms. Is patient prescribed a controlled substance at d/c from ED?: No Referrals: Hadley Zimmerman DO [Primary Care Provider] - 1-2 days Time of Disposition: 03:52
[2018-07-19 04:10] VITALS: BP 119/69; PULSE 82; RESP 14; TEMP 98.3
== END 2018-07-19 04:08 | disposition home or self-care (01) ==
LOC: EC 02:15
DX: O21.0 Mild hyperemesis gravidarum (principal); O99.342 Other mental disorders complicating pregnancy, second trimester; F41.9 Anxiety disorder, unspecified; Z3A.13 13 weeks gestation of pregnancy; Z79.899 Other long term (current) drug therapy; Z88.0 Allergy status to penicillin; Z88.1 Allergy status to other antibiotic agents; Z88.2 Allergy status to sulfonamides; Z87.891 Personal history of nicotine dependence
CPT/HCPCS: 36415; 80053; 82150; 83690; 85025; 81001; 99284; 96374; 96375; 96361; J1200; J2765

== ENCOUNTER 2018-08-23 20:52 | Emergency (ER) | payer OTHER ==
[2018-08-23 21:22] VITALS: BP 122/75; PULSE 93; RESP 20; TEMP 98.3
[2018-08-23] MEDS ORDERED: LIDOCAINE 1%-EPI 1:100,000 20 ML VIAL SQ ONE (21:52)
--- NOTE | 2018-08-23 21:56 | ED ---
General Adult HPI - General Chief complaint: Wound/Laceration Stated complaint: Foot Lac Time Seen by Provider: 08/23/18 21:44 Source: patient, family Mode of arrival: ambulatory Limitations: no limitations - History of Present Illness Initial comments: Patient is a 27-year-old female presents with a chief complaint laceration of the top of her left foot. Patient states this happened about 7:30. He says a piece of glass on the bottom of her right foot and would wipe it off on the top of her left foot neck; herself. Patient having minimal pain now. Bleeding controlled. Patient denies any numbness or tingling, she is able to move her foot and ambulate. - Related Data Home Medications Medication Instructions Recorded Confirmed Desvenlafaxine Succinate [Pristiq 50 mg PO DAILY 09/09/17 07/14/18 ER] busPIRone HCL [Buspar] 7.5 mg PO BID 01/19/18 07/14/18 Amitriptyline HCl [Elavil] 50 mg PO DAILY 04/11/18 07/14/18 SUMAtriptan SUCCINATE [Imitrex] 50 mg PO BID PRN 04/11/18 07/14/18 hydrOXYzine PAMOATE [Vistaril] 50 mg PO TID PRN 04/11/18 07/14/18 Allergies Allergy/AdvReac Type Severity Reaction Status Date / Time cephalexin monohydrate Allergy Rash/Hives Verified 08/23/18 21:22 [From Keflex] Penicillins Allergy Rash/Hives Verified 08/23/18 21:22 Sulfa (Sulfonamide Allergy Rash/Hives Verified 08/23/18 21:22 Antibiotics) Review of Systems ROS Statement: Those systems with pertinent positive or pertinent negative responses have been documented in the HPI. ROS Other: All systems not noted in ROS Statement are negative. Skin: Reports: as per HPI Past Medical History Past Medical History: No Reported History Additional Past Medical History / Comment(s): migraines, History of Any Multi-Drug Resistant Organisms: None Reported Past Surgical History: No Surgical Hx Reported Additional Past Surgical History / Comment(s): wisdom teeth, Past Psychological History: Anxiety, Depression Smoking Status: Former smoker Past Alcohol Use History: Rare Past Drug Use History: None Reported General Exam Limitations: no limitations General appearance: alert, in no apparent distress Head exam: Present: atraumatic, normocephalic Eye exam: Present: normal appearance ENT exam: Present: normal exam Neck exam: Present: normal inspection Respiratory exam: Absent: respiratory distress Cardiovascular Exam: Present: regular rate, normal rhythm GI/Abdominal exam: Present: soft. Absent: distended, tenderness Rectal exam: Present: deferred Extremities exam: Present: normal inspection Back exam: Present: normal inspection Neurological exam: Present: alert, oriented X3, normal gait Psychiatric exam: Present: normal affect, normal mood Skin exam: Present: warm, dry, other (Patient has a 3 cm laceration, linear, at the top of her left foot.) Course Vital Signs 08/23/18 21:18 Temperature 98.3 F Pulse Rate 93 Respiratory 20 Rate Blood Pressure 122/75 O2 Sat by Pulse 99 Oximetry Procedures - Laceration Laceration #1 Consent Obtained: verbal consent Indication: laceration Site: foot Description: linear Depth: simple, single layer Pre-repair: irrigated extensively Type of Sutures: nylon Size of Sutures: 5-0 Technique: running Patient Tolerated Procedure: well Additional Comments: 3 cm laceration, linear, no foreign bodies, extensively irrigated, closed with running 5-0 nylon suture. Medical Decision Making - Medical Decision Making Patient presents with chief complaint laceration to foot. On initial evaluation, vitals are stable, patient is no acute distress. She is able ambulate well without assistance, exam shows a neurovascularly intact foot, laceration is superficial and extends through the dermis, no damage to underlying structures. Laceration repaired per procedure note. The patient is instructed to have the sutures removed in 5 days, follow-up with primary care, return to the ED if new or concerning symptoms arise. I specifically instructed on signs and symptoms that should prompt immediate return regarding infection. Disposition Clinical Impression: Laceration Disposition: HOME SELF-CARE Condition: Good Instructions (If sedation given, give patient instructions): Care For Your Stitches (ED) Is patient prescribed a controlled substance at d/c from ED?: No Referrals: Hadley Zimmerman DO [Primary Care Provider] - 1-2 days
== END 2018-08-23 22:50 | disposition home or self-care (01) ==
LOC: EC 20:52
DX: S91.312A Laceration without foreign body, left foot, initial encounter (principal); F32.9 Major depressive disorder, single episode, unspecified; F41.9 Anxiety disorder, unspecified; Z87.891 Personal history of nicotine dependence; Z79.899 Other long term (current) drug therapy; Z88.0 Allergy status to penicillin; Z88.1 Allergy status to other antibiotic agents; Z88.2 Allergy status to sulfonamides; W25.XXXA Contact with sharp glass, initial encounter
CPT/HCPCS: 12002; 99282

== ENCOUNTER 2018-10-19 01:00 | Outpatient (CLI) | payer OTHER ==
[2018-10-19 02:04] VITALS: BP 125/75; PULSE 82; RESP 16; TEMP 97.5
--- NOTE | 2018-10-19 07:36 | P.MSEPDOC ---
Presenting Problems - Arrival Data Date of Arrival on Unit: 10/19/18 Time of Arrival on Unit: 01:02 Mode of Transport: Ambulatory - Complaint OB-Reason for Admission/Chief Complaint: Possible Onset of Labor Medical History - Information : 3 Para: 1 - Gestational Age Gestational Age by SKIP (wks/days): 27 Weeks and 0 Days Review of Systems - Review of Systems Constitutional: No problems Breast: No problems ENT: No problems Cardiovascular: No problems Respiratory: No problems Gastrointestinal: No problems Genitourinary: No problems Musculoskeletal: No problems Neurological: No problems Skin: No problems Comment: pt is DOM, reports having regular care during this with dr castañeda Vital Signs - Temperature Temperature: 97.5 F Temperature Source: Temporal Artery Scan - Pulse Right Sitting Brachial Pulse Rate: 82 Pulse Assessment Method: Automatic Cuff - Respirations Respiratory Rate: 16 Oxygen Delivery Method: Room Air O2 Sat by Pulse Oximetry: 99 - Blood Pressure Right Arm Sitting Blood Pressure: 125/75 Blood Pressure Mean: 91 Blood Pressure Source: Automatic Cuff Medical Screen Scoring (Pre) - Cervical Exam Dilation: 1-3 cm = 1 Effacement: Exam Deferred Membranes: Intact - Uterine Contractions Frequency: N/A Duration: N/A Intensity: N/A - Maternal Vital Signs Maternal Temperature: N/A Maternal Blood Pressure: N/A Signs of Preeclampsia: N/A Maternal Respirations: N/A - Maternal Trauma Maternal Trauma: N/A - Assessment - Baby A Baseline FHR: 140 Heart Rate - NICHD Category: Category I (Normal) = 0 Position: N/A Station: N/A - Total Score - Baby A Total Score - Baby A: 1 - Total Score - Baby B Total Score - Baby B: 1 - Total Score - Baby C Total Score - Baby C: 1 - Level of Risk - Baby A Level of Risk - Baby A: Low (0-5) - Level of Risk - Baby B Level of Risk - Baby B: Low (0-5) - Level of Risk - Baby C Level of Risk - Baby C: Low (0-5) Physician Notification (Pre) - Physician Notified Physician Notified Date: 10/19/18 Physician Notified Time: 01:35 Physician/Practitioner Notifed:: dr poe Spoke With: dr poe New Order Received: Yes Disposition - Disposition OB Disposition: Discharge to home Discharge Date: 10/19/18 Discharge Time: 01:48 I agree with the RN Medical Screening Exam: Yes Risk & Benefit of care provided described in d/c instruction: Yes Diagnosis: FALSE LABOR BEFORE 37 COMPLETED WEEKS OF GEST, SECOND TRI
== END 2018-10-19 01:48 | disposition home or self-care (01) ==
LOC: FBPOP 01:00
PROVIDERS: ATTEND Obstetrics & Gynecology
DX: O47.03 False labor before 37 completed weeks of gestation, third trimester (principal); Z3A.27 27 weeks gestation of pregnancy
CPT/HCPCS: 99213

== ENCOUNTER 2021-03-13 08:24 | Emergency (ER) | payer OTHER ==
[2021-03-13 08:29] VITALS: RESP 18; TEMP 98.1
[2021-03-13] MEDS ORDERED: SODIUM CHLORIDE 0.9% 1,000 ML IV STA (08:54)
[2021-03-13] MEDS ORDERED: SODIUM CHLORIDE 0.9% 500 ML 500 ML IV STA (08:54)
[2021-03-13] MEDS ORDERED: ACETAMINOPHEN TAB 500 MG TAB PO STA (08:55)
--- NOTE | 2021-03-13 08:57 | ED ---
Abdominal Pain HPI - General Chief Complaint: Abdominal Pain Stated Complaint: Right side pain, 12 weeks Time Seen by Provider: 03/13/21 08:37 Source: patient, RN notes reviewed Mode of arrival: ambulatory Limitations: no limitations - History of Present Illness Initial Comments: 30-year-old female presents emergency Department chief complaint of right flank pain. Patient states she woke up this morning to this. Patient states pain wraps around down into her lower abdomen. Patient has no history kidney stones states nothing makes pain similar worse she's has slight nausea no vomiting no diarrhea no constipation denies any dysuria no hematuria patient states she is currently 12 weeks she is A1. Patient states that nothing really makes pain feel better or worse no prior abdominal surgeries denies fevers or chills - Related Data Home Medications Medication Instructions Recorded Confirmed Doxylamine Succinate [Unisom] 25 mg PO HS 03/13/21 03/13/21 Famotidine 20 mg PO BID 03/13/21 03/13/21 Flintstones Gummies 2 tab PO DAILY 03/13/21 03/13/21 Pyridoxine HCl (Vitamin B6) 100 mg PO DAILY 03/13/21 03/13/21 [Vitamin B-6] Allergies Allergy/AdvReac Type Severity Reaction Status Date / Time cephalexin monohydrate Allergy Rash/Hives Verified 03/13/21 09:15 [From Keflex] Penicillins Allergy Rash/Hives Verified 03/13/21 09:15 Sulfa (Sulfonamide Allergy Rash/Hives Verified 03/13/21 09:15 Antibiotics) sulfamethoxazole Allergy Rash/Hives Verified 03/13/21 09:15 [From Bactrim] trimethoprim [From Bactrim] Allergy Rash/Hives Verified 03/13/21 09:15 Review of Systems ROS Statement: Those systems with pertinent positive or pertinent negative responses have been documented in the HPI. ROS Other: All systems not noted in ROS Statement are negative. Past Medical History Past Medical History: No Reported History Additional Past Medical History / Comment(s): migraines, History of Any Multi-Drug Resistant Organisms: None Reported Past Surgical History: No Surgical Hx Reported Additional Past Surgical History / Comment(s): wisdom teeth, Past Psychological History: Anxiety, Depression Smoking Status: Former smoker Past Alcohol Use History: None Reported Past Drug Use History: None Reported General Exam Limitations: no limitations General appearance: alert, in no apparent distress Head exam: Present: atraumatic, normocephalic, normal inspection Eye exam: Present: normal appearance, PERRL, EOMI. Absent: scleral icterus, conjunctival injection, periorbital swelling ENT exam: Present: normal exam, normal oropharynx, mucous membranes moist Neck exam: Present: normal inspection, full ROM. Absent: tenderness, meningismus, lymphadenopathy Respiratory exam: Present: normal lung sounds bilaterally. Absent: respiratory distress, wheezes, rales, rhonchi, stridor Cardiovascular Exam: Present: regular rate, normal rhythm, normal heart sounds. Absent: systolic murmur, diastolic murmur, rubs, gallop, clicks GI/Abdominal exam: Present: soft, tenderness (Right-sided), normal bowel sounds. Absent: distended, guarding, rebound, rigid Back exam: Present: CVA tenderness (R). Absent: CVA tenderness (L) Neurological exam: Present: alert Skin exam: Present: warm, dry, intact, normal color. Absent: rash Course Vital Signs 03/13/21 08:26 Temperature 98.1 F Pulse Rate 79 Respiratory 18 Rate Blood Pressure 136/85 O2 Sat by Pulse 100 Oximetry Medical Decision Making - Medical Decision Making 30-year-old female presented emergency department with flank pain ultrasound labs unremarkable. Patient feels improved. IV fluids and Tylenol patient was discharged in stable condition return parameters discussed. - Lab Data Result diagrams: 03/13/21 09:27 03/13/21 09:27 Lab Results 03/13/21 03/13/21 03/13/21 Range/Units 09:27 09:27 09:27 WBC 10.9 H (3.8-10.6) k/uL RBC 4.65 (3.80-5.40) m/uL Hgb 13.4 (11.4-16.0) gm/dL Hct 39.7 (34.0-46.0) % MCV 85.2 (80.0-100.0) fL MCH 28.8 (25.0-35.0) pg MCHC 33.8 (31.0-37.0) g/dL RDW 12.8 (11.5-15.5) % Plt Count 205 (150-450) k/uL MPV 9.3 Neutrophils % 74 % Lymphocytes % 18 % Monocytes % 5 % Eosinophils % 2 % Basophils % 0 % Neutrophils # 8.1 H (1.3-7.7) k/uL Lymphocytes # 1.9 (1.0-4.8) k/uL Monocytes # 0.6 (0-1.0) k/uL Eosinophils # 0.2 (0-0.7) k/uL Basophils # 0.0 (0-0.2) k/uL Sodium 135 L (137-145) mmol/L Potassium 3.9 (3.5-5.1) mmol/L Chloride 107 (98-107) mmol/L Carbon Dioxide 19 L (22-30) mmol/L Anion Gap 9 mmol/L BUN 5 L (7-17) mg/dL Creatinine 0.58 (0.52-1.04) mg/dL Est GFR (CKD-EPI)AfAm >90 (>60 ml/min/1.73 sqM) Est GFR (CKD-EPI)NonAf >90 (>60 ml/min/1.73 sqM) Glucose 96 (74-99) mg/dL Calcium 9.3 (8.4-10.2) mg/dL Total Bilirubin 0.3 (0.2-1.3) mg/dL AST 19 (14-36) U/L ALT 12 (4-34) U/L Alkaline Phosphatase 55 (38-126) U/L Total Protein 6.4 (6.3-8.2) g/dL Albumin 3.6 (3.5-5.0) g/dL Amylase 88 (30-110) U/L Lipase 264 (23-300) U/L Urine Color Light Yellow Urine Appearance Clear (Clear) Urine pH 6.0 (5.0-8.0) Ur Specific [place] 1.006 (1.001-1.035) Urine Protein Negative (Negative) Urine Glucose (UA) Negative (Negative) Urine Ketones Negative (Negative) Urine Blood Negative (Negative) Urine Nitrite Negative (Negative) Urine Bilirubin Negative (Negative) Urine Urobilinogen <2.0 (<2.0) mg/dL Ur Leukocyte Esterase Negative (Negative) Disposition Clinical Impression: Flank pain Disposition: HOME SELF-CARE Condition: Stable Instructions (If sedation given, give patient instructions): Flank Pain (ED) Additional Instructions: Please return to the Emergency Department if symptoms worsen or any other concerns. Is patient prescribed a controlled substance at d/c from ED?: No Referrals: Hadley Zimmerman DO [Primary Care Provider] - 1-2 days Time of Disposition: 10:49
[2021-03-13 09:42] LABS: Basophils % (A) 0 %; Eosinophils # (A) 0.2 k/uL (0-0.7); Eosinophils % (A) 2 %; HCT 39.7 % (34.0-46.0); HGB 13.4 gm/dL (11.4-16.0); Lymphocytes # (A) 1.9 k/uL (1.0-4.8); Lymphocytes % (A) 18 %; MCH 28.8 pg (25.0-35.0); MCHC 33.8 g/dL (31.0-37.0); MCV 85.2 fL (80.0-100.0); Mean Platelet Volume 9.3; Monocytes # (A) 0.6 k/uL (0-1.0); Monocytes % (A) 5 %; Neutrophils # (A) 8.1 k/uL (1.3-7.7); Neutrophils % (A) 74 %; Platelet Count 205 k/uL (150-450); RBC 4.65 m/uL (3.80-5.40); RDW 12.8 % (11.5-15.5); WBC 10.9 k/uL (3.8-10.6)
[2021-03-13 09:55] LABS: ALT 12 U/L (4-34); AST 19 U/L (14-36); African American GFR (CKD) >90 (>60 ml/min/1.73 sqM); Albumin 3.6 g/dL (3.5-5.0); Alkaline Phosphatase 55 U/L (38-126); Amylase 88 U/L (30-110); Anion Gap 9 mmol/L; Blood Urea Nitrogen 5 mg/dL (7-17); Calcium 9.3 mg/dL (8.4-10.2); Carbon Dioxide 19 mmol/L (22-30); Chloride 107 mmol/L (98-107); Glucose 96 mg/dL (74-99); Lipase 264 U/L (23-300); Non-African American GFR(CKD) >90 (>60 ml/min/1.73 sqM); Potassium 3.9 mmol/L (3.5-5.1); Sodium 135 mmol/L (137-145); Total Bilirubin 0.3 mg/dL (0.2-1.3); Total Protein 6.4 g/dL (6.3-8.2)
--- NOTE | 2021-03-13 10:04 | US ---
EXAMINATION TYPE: US OB limited DATE OF EXAM: 03/13/2021 COMPARISON: EXAMINATION TYPE: US OB limited Patient came to with right flank pain since this morni ng: FHT only for this exam. DATE OF EXAM: 03/13/2021 COMPARISON: NONE CLINICAL HISTORY: heart tones. EXAM PERFORMED: Transabdominal (TA) GESTATIONAL AGE / DATING No growth performed on today?s study per ordering physician SURVEY HEART RATE: 160 bpm RHYTHM: Normal Viable heart tones seen today. IMPRESSION: Limited exam performed for heart tones only. heart tones are identified with a heart rate of 160 bpm compatible with viable .
--- NOTE | 2021-03-13 10:05 | US ---
EXAMINATION TYPE: US renals and bladder DATE OF EXAM: 03/13/2021 COMPARISON: NONE CLINICAL HISTORY: right flank pain. Patient states having right flank pain since this morning; patien t is . EXAM MEASUREMENTS: Right Kidney: 11.6 x 4.9 x 5.0 cm Left Kidney: 11.2 x 4.8 x 5.0 cm Right Kidney: No hydronephrosis or masses seen Left Kidney: No hydronephrosis or masses seen Bladder: wnl; anechoic Bilateral Jets seen: Yes There is no evidence for hydronephrosis at this point in time. No nephrolithiasis is seen. No eddie s are identified. The urinary bladder is anechoic. Bilateral ureteral jets are seen. IMPRESSION: No hydronephrosis or nephrolithiasis.
[2021-03-13 10:32] LABS: Appearance,Urine Clear (Clear); Bilirubin,Urine Negative (Negative); Blood,Urine Negative (Negative); Color,Urine Light Yellow; Glucose,Urine (UA) Negative (Negative); Ketones,Urine Negative (Negative); Leukocyte Esterase,Urine Negative (Negative); Nitrite,Urine Negative (Negative); Protein,Urine Negative (Negative); Specific Gravity,Urine 1.006 (1.001-1.035); Urobilinogen,Urine <2.0 mg/dL (<2.0)
[2021-03-13 11:05] VITALS: BP 123/74; PULSE 66
== END 2021-03-13 11:05 | disposition home or self-care (01) ==
LOC: EC 08:24
DX: O26.891 Other specified pregnancy related conditions, first trimester (principal); R10.9 Unspecified abdominal pain; Z87.891 Personal history of nicotine dependence
CPT/HCPCS: 36415; 76770; 76815; 80053; 81003; 82150; 83690; 85025; 96360; 99284

== ENCOUNTER 2021-04-23 15:50 | Emergency (ER) | payer OTHER ==
[2021-04-23 15:56] VITALS: TEMP 96.8
--- NOTE | 2021-04-23 17:11 | XR ---
EXAMINATION TYPE: XR chest 2V DATE OF EXAM: 04/23/2021 5:03 PM COMPARISON:None TECHNIQUE: Frontal view of the chest. CLINICAL INDICATION:Female, 30 years old with history of Left lateral chest pain; FINDINGS: Lungs/Pleura: There is no evidence of pleural effusion, focal consolidation, or pneumothorax. Pulmonary vascularity: Unremarkable. Heart/mediastinum: Cardiomediastinal silhouette is unremarkable. Musculoskeletal:No acute osseous pathology. IMPRESSION: No acute cardiopulmonary disease/process.
--- NOTE | 2021-04-23 18:15 | ED ---
General Adult HPI - General Chief complaint: Chest Pain Stated complaint: lt sided chest pain Time Seen by Provider: 04/23/21 16:40 Source: patient Mode of arrival: ambulatory Limitations: no limitations - History of Present Illness Initial comments: 30 year-old female patient presents to the emergency department for evaluation of left sided chest pain. States that the pain started over the lateral chest and then went to the middle. States that the middle chest pain resolved but she continues to have pain over the lateral chest. States pain worsens with deep breaths, movement, and palpation over the area. Denies any cough or congestion. Denies shortness of breath. Denies heavy lifting or injury. She is 18 weeks . Denies any abdominal pain, vaginal discharge, or vaginal bleeding. She is A1. Denies any fever or chills. Denies nausea or vomiting. Denies constipation or diarrhea. - Related Data Home Medications Medication Instructions Recorded Confirmed Doxylamine Succinate [Unisom] 25 mg PO HS 03/13/21 03/13/21 Famotidine 20 mg PO BID 03/13/21 03/13/21 Flintstones Gummies 2 tab PO DAILY 03/13/21 03/13/21 Pyridoxine HCl (Vitamin B6) 100 mg PO DAILY 03/13/21 03/13/21 [Vitamin B-6] Allergies Allergy/AdvReac Type Severity Reaction Status Date / Time cephalexin monohydrate Allergy Rash/Hives Verified 04/23/21 15:56 [From Keflex] Penicillins Allergy Rash/Hives Verified 04/23/21 15:56 Sulfa (Sulfonamide Allergy Rash/Hives Verified 04/23/21 15:56 Antibiotics) sulfamethoxazole Allergy Rash/Hives Verified 04/23/21 15:56 [From Bactrim] trimethoprim [From Bactrim] Allergy Rash/Hives Verified 04/23/21 15:56 Review of Systems ROS Statement: Those systems with pertinent positive or pertinent negative responses have been documented in the HPI. ROS Other: All systems not noted in ROS Statement are negative. Past Medical History Past Medical History: No Reported History Additional Past Medical History / Comment(s): migraines, History of Any Multi-Drug Resistant Organisms: None Reported Past Surgical History: No Surgical Hx Reported Additional Past Surgical History / Comment(s): wisdom teeth, Past Psychological History: Anxiety, Depression Smoking Status: Former smoker Past Alcohol Use History: None Reported Past Drug Use History: None Reported General Exam Limitations: no limitations General appearance: alert, in no apparent distress, other (This is a well- developed, well-nourished adult female in no acute distress.) ENT exam: Present: normal exam, normal oropharynx, mucous membranes moist Respiratory exam: Present: normal lung sounds bilaterally, chest wall tenderness (Left lateral over the midaxillary line.). Absent: respiratory distress, wheezes, rales, rhonchi, stridor Cardiovascular Exam: Present: regular rate, normal rhythm, normal heart sounds. Absent: systolic murmur, diastolic murmur, rubs, gallop, clicks GI/Abdominal exam: Present: soft, normal bowel sounds. Absent: distended, tenderness, guarding, rebound, rigid Neurological exam: Present: alert, oriented X3, CN II-XII intact Psychiatric exam: Present: normal affect, normal mood Skin exam: Present: warm, dry, intact, normal color. Absent: rash Course Vital Signs 04/23/21 04/23/21 15:51 18:40 Temperature 96.8 F L Pulse Rate 88 80 Respiratory 18 16 Rate Blood Pressure 119/79 122/78 O2 Sat by Pulse 100 100 Oximetry EKG Findings - EKG Comments: EKG Findings:: EKG obtained at 1620 shows normal sinus rhythm with a ventricular rate of 82, ME interval 160, QRS duration 78, QT 388, QTC 453. No evidence of ST elevation or depression. Medical Decision Making - Medical Decision Making 30-year-old female patient presents to the emergency department today for evaluation of left lateral chest pain that started earlier today. Physical examination did reveal increased pain with palpation over the left lateral chest midaxillary line. Lungs are clear to auscultation with good air movement. She is in no respiratory distress and speaking full sentences without difficulty. Vital signs are unremarkable and oxygen saturation is normal. Chest x-ray is negative. EKG is unremarkable. I did discuss findings and results with the patient. We did discuss further testing to work up for possible pulmonary embolism due to hypercoagulable states of . Patient declined at this time. This is reasonable due to patient's vital signs and lack of dyspnea, no leg swelling or pain. We did discuss signs and symptoms of blood clot. Instructed to return if her symptoms worsen or change. Instructed HER primary care physician for recheck in 1-2 days. Return parameters were discussed in detail. She verbalizes understanding and agrees with this plan. My attending of Dr. Perez. - Radiology Data Radiology results: report reviewed, image reviewed Two-view x-ray of the chest is obtained. Report was reviewed in its severity. Impression by Dr. Serrano shows no acute cardio pulmonary disease/process Disposition Clinical Impression: Chest pain Disposition: HOME SELF-CARE Condition: Good Instructions (If sedation given, give patient instructions): Chest Pain (ED) Additional Instructions: Follow up with your primary care physician and your ui developer for further evaluation as soon as possible. Return for any new, worsening, or concerning symptoms. Is patient prescribed a controlled substance at d/c from ED?: No Referrals: Hadley Zimmerman DO [Primary Care Provider] - 1-2 days Time of Disposition: 18:32
[2021-04-23 18:44] VITALS: BP 122/78; PULSE 80; RESP 16
== END 2021-04-23 18:44 | disposition home or self-care (01) ==
LOC: EC 15:50
DX: O26.892 Other specified pregnancy related conditions, second trimester (principal); R07.89 Other chest pain; Z3A.18 18 weeks gestation of pregnancy; Z87.891 Personal history of nicotine dependence
CPT/HCPCS: 71046; 99285